=== PATIENT | female | born 1925 | race Caucasian/White ===

== ENCOUNTER 2016-07-02 10:18 | Inpatient (IN) | payer OTHER ==
[~2016-07-02] VITALS: Ht 157.5 cm; Wt 61.8 kg
[~2016-07-02 10:18] MED LIST: CARV25TA77 PO; CHOL200016 PO; CLOP75 PO; DILT180C47 PO; DSS100 PO; ENAL20 PO; GABA-529 PO; HYDR-3965 PO; HYDR25TA PO; ISOS30TA6 PO; LEVO75TA12 PO; MAGOX PO; NITR.4 SL; OMEP20 PO; PRAV20TA4 PO; RANI150T7 PO; RANO500T3 PO
[2016-07-02] MEDS ORDERED: COUGH SYRUP PO (10:37)
[2016-07-02 11:21] LABS: GLUCOSE,POINT OF CARE 155 MG/DL (70-110)
[2016-07-02 12:47] LABS: EOSINOPHILS % (AUTO) 0.3 % (1.0-6.0); HEMATOCRIT 29.1 % (36-46); HEMOGLOBIN 9.6 g/dL (12.0-16.0); LYMPHOCYTES % (AUTO) 10.2 % (22.0-44.0); MEAN CORPUSCULAR HEMOGLOBIN 30.1 pg (26.0-34.0); MEAN CORPUSCULAR HGB CONC 33.1 G/dL (31.0-37.0); MEAN CORPUSCULAR VOLUME 91 fL (80-100); MONOCYTES # (AUTO) 0.5 K/uL (0.1-1.0); MONOCYTES % (AUTO) 5.6 % (2.0-9.0); NEUTROPHILS # (AUTO) 7.9 K/uL (1.8-7.7); NEUTROPHILS % (AUTO) 83.9 % (40.0-70.0); PLATELET COUNT (AUTO) 198 K/uL (150-450); RED CELL DISTRIBUTION WIDTH 13.4 % (11.5-14.5); WHITE BLOOD COUNT (AUTO) 9.4 K/uL (4.5-11.0)
[2016-07-02 12:59] LABS: CALCIUM, TOTAL 9.1 mg/dL (8.8-10.5); CREATININE 1.06 mg/dL (0.60-1.30); POTASSIUM 3.8 mmol/L (3.5-5.1)
[2016-07-02 13:01] LABS: ALBUMIN 3.3 g/dL (3.4-5.0); BILIRUBIN,TOTAL 0.4 mg/dL (0.1-1.0); TOTAL PROTEIN, SERUM 7.9 g/dL (6.4-8.2)
[2016-07-02] MEDS ORDERED: FUROSEMIDE 40 MG/4 ML VIAL IVP ONE (15:00)
[2016-07-02] MEDS ORDERED: ALBUTEROL SULFATE 2.5 MG/0.5 ML NEB SOLUTION NEB ONE (15:00)
[2016-07-02] MEDS ORDERED: 0.9% SODIUM CHLORIDE 5 ML NEB SOLUTION NEB ONE (15:13)
[2016-07-02 16:26] LABS: GLUCOSE,POINT OF CARE 119 MG/DL (70-110)
[2016-07-02 16:29] LABS: APPEARANCE,URINE CLEAR (CLEAR); GLUCOSE, URINE (UA) NEGATIVE (NEGATIVE); KETONES,URINE NEGATIVE (NEGATIVE); LEUKOCYTE ESTERASE ,URINE NEGATIVE (NEGATIVE); OCCULT BLOOD,URINE NEGATIVE (NEGATIVE); PH,URINE 7.5 (5.0-8.0); PROTEIN,URINE NEGATIVE (NEGATIVE)
[2016-07-02 16:30] LABS: ADD UA MICROSCOPIC NO
[2016-07-02 22:30] VITALS: BP 127/64
[2016-07-02] MEDS: HYDROCODONE/ACETAMINOPHEN 5-325 MG TABLET PO SCH (23:43)
[2016-07-02 23:50] VITALS: BP 122/83
[2016-07-03] VITALS (7 sets, daily range): BP systolic 115–154; BP diastolic 74–94
[2016-07-03] MEDS: HYDROCODONE/ACETAMINOPHEN 5-325 MG TABLET PO SCH ×3 (08:33→23:45)
[2016-07-03] MEDS ORDERED: IPRATROPIUM BROMIDE 0.5 MG/2.5 ML NEB SOLUTION NEB PRN (10:30)
[2016-07-03] MEDS ORDERED: ZOLPIDEM TARTRATE 5 MG TABLET PO PRN (10:30)
[2016-07-03] MEDS ORDERED: ACETAMINOPHEN 325 MG TABLET PO PRN (10:30)
[2016-07-03] MEDS ORDERED: ALBUTEROL SULFATE 2.5 MG/0.5 ML NEB SOLUTION NEB PRN (10:30)
[2016-07-03] MEDS ORDERED: HYDROCODONE/ACETAMINOPHEN 5-325 MG TABLET PO PRN ×2 (10:30)
[2016-07-03] MEDS ORDERED: BISACODYL 10 MG RECTAL RECTAL SUPPOSITORY PR PRN (10:30)
[2016-07-03] MEDS ORDERED: FUROSEMIDE 40 MG/4 ML VIAL IVP ONE ×2 (10:30→19:00)
[2016-07-03] MEDS ORDERED: DOCUSATE SODIUM 100 MG CAPSULE PO PRN (10:30)
[2016-07-03] MEDS ORDERED: MAGNESIUM HYDROXIDE SUSPENSION 30 ML UDCUP PO PRN (10:30)
[2016-07-03] MEDS ORDERED: NITROGLYCERIN 0.4 MG SUBLINGUAL TABLET #25 SL PRN (10:30)
[2016-07-03] MEDS: ISOSORBIDE MONONITRATE 30 MG ER TABLET PO SCH (11:43)
[2016-07-03] MEDS: RANITIDINE HCL 150 MG TABLET PO SCH ×2 (11:44→22:01)
[2016-07-03] MEDS: RANOLAZINE 500 MG SR TABLET PO SCH ×2 (11:44→22:06)
[2016-07-03] MEDS: CHOLECALCIFEROL (VIT D3) 2,000 UNITS TABLET PO SCH (11:44)
[2016-07-03] MEDS: LEVOTHYROXINE SODIUM 75 MCG TABLET PO SCH (11:44)
[2016-07-03] MEDS: MAGNESIUM OXIDE 400 MG TABLET PO SCH (11:44)
[2016-07-03] MEDS: CLOPIDOGREL BISULFATE 75 MG TABLET PO SCH (11:44)
[2016-07-03] MEDS: ENALAPRIL MALEATE 20 MG TABLET PO SCH ×2 (11:44→23:34)
[2016-07-03] MEDS: CARVEDILOL 25 MG TABLET PO SCH ×2 (11:44→22:06)
[2016-07-03] MEDS: HEPARIN SODIUM,PORCINE 5,000 UNITS/ML VIAL SQ SCH ×2 (15:46→23:45)
[2016-07-03] MEDS ORDERED: AMIODARONE HCL 150 MG in DEXTROSE 5%-WATER 97 ML IV ONE (15:50)
[2016-07-03] MEDS ORDERED: AMIODARONE HCL 360 MG in DEXTROSE 5%-WATER 242.8 ML IV ONE (16:00)
[2016-07-03] MEDS ORDERED: AMIODARONE HCL 540 MG in DEXTROSE 5%-WATER 239.2 ML IV ONE (22:00)
[2016-07-03] MEDS: DOCUSATE SODIUM 100 MG CAPSULE PO SCH (22:01)
[2016-07-04 03:41] VITALS: BP 145/105
[2016-07-04] MEDS: MORPHINE SULFATE 2 MG/ML SYRINGE IVP PRN (03:49)
[2016-07-04 04:24] VITALS: BP 135/95
[2016-07-04] MEDS: ONDANSETRON HCL 4 MG/2 ML VIAL IVP PRN ×2 (04:48→15:50)
[2016-07-04] MEDS: LEVOTHYROXINE SODIUM 75 MCG TABLET PO SCH (05:58)
[2016-07-04 06:24] LABS: BASOPHILS # (AUTO) 0.02 K/uL (0.00-0.20); BASOPHILS % (AUTO) 0.3 % (0.0-2.0); HEMATOCRIT 32.4 % (36-46); HEMOGLOBIN 10.8 g/dL (12.0-16.0); LYMPHOCYTES # (AUTO) 1.6 K/uL (1.0-4.8); LYMPHOCYTES % (AUTO) 20.5 % (22.0-44.0); MEAN CORPUSCULAR HEMOGLOBIN 30.3 pg (26.0-34.0); MEAN CORPUSCULAR HGB CONC 33.2 G/dL (31.0-37.0); MEAN CORPUSCULAR VOLUME 91 fL (80-100); MONOCYTES # (AUTO) 0.8 K/uL (0.1-1.0); MONOCYTES % (AUTO) 9.6 % (2.0-9.0); NEUTROPHILS # (AUTO) 5.3 K/uL (1.8-7.7); NEUTROPHILS % (AUTO) 68.3 % (40.0-70.0); PLATELET COUNT (AUTO) 210 K/uL (150-450); RED BLOOD CELL COUNT(AUTO) 3.56 MIL/uL (4.00-5.20); RED CELL DISTRIBUTION WIDTH 14.1 % (11.5-14.5); WHITE BLOOD COUNT (AUTO) 7.8 K/uL (4.5-11.0)
[2016-07-04 07:14] LABS: ALBUMIN 3.2 g/dL (3.4-5.0); BILIRUBIN,TOTAL 0.4 mg/dL (0.1-1.0); CALCIUM, TOTAL 9.1 mg/dL (8.8-10.5); CHOL/HDL RATIO 2.4 (3.9-5.7); CREATININE 1.08 mg/dL (0.60-1.30); THYROID STIMULATING HORMONE 3.62 uIU/mL (0.36-3.74); TOTAL PROTEIN, SERUM 7.7 g/dL (6.4-8.2)
[2016-07-04 07:16] VITALS: BP 136/84
[2016-07-04 07:16] LABS: POTASSIUM 2.9 mmol/L (3.5-5.1)
[2016-07-04] MEDS ORDERED: POTASSIUM CHLORIDE 20 MEQ ER TABLET PO PRN ×2 (07:45)
[2016-07-04] MEDS ORDERED: POTASSIUM CHL 10 MEQ/WATER 50 ML IV PRN (07:45)
[2016-07-04] MEDS ORDERED: DIGOXIN 250 MCG/ML 2 ML AMP IVP ONE (07:45)
[2016-07-04] MEDS: HYDROCODONE/ACETAMINOPHEN 5-325 MG TABLET PO SCH ×2 (08:41→15:50)
[2016-07-04] MEDS: RANITIDINE HCL 150 MG TABLET PO SCH ×2 (08:41→20:19)
[2016-07-04] MEDS: CLOPIDOGREL BISULFATE 75 MG TABLET PO SCH (08:41)
[2016-07-04] MEDS: MAGNESIUM OXIDE 400 MG TABLET PO SCH (08:41)
[2016-07-04] MEDS: ISOSORBIDE MONONITRATE 30 MG ER TABLET PO SCH (08:41)
[2016-07-04] MEDS: HEPARIN SODIUM,PORCINE 5,000 UNITS/ML VIAL SQ SCH ×2 (08:41→15:50)
[2016-07-04] MEDS: PANTOPRAZOLE SODIUM 40 MG/VIAL IVP SCH (08:41)
[2016-07-04] MEDS: DOCUSATE SODIUM 100 MG CAPSULE PO SCH ×2 (08:41→20:19)
[2016-07-04] MEDS: PRAVASTATIN SODIUM 40 MG TABLET PO SCH (08:41)
[2016-07-04] MEDS: AMIODARONE HCL 200 MG TABLET PO SCH ×3 (08:41→20:19)
[2016-07-04] MEDS: ENALAPRIL MALEATE 20 MG TABLET PO SCH ×2 (08:42→23:18)
[2016-07-04] MEDS: GABAPENTIN 100 MG CAPSULE PO SCH (08:42)
[2016-07-04] MEDS: APIXABAN 2.5 MG TABLET PO SCH ×2 (08:42→20:20)
[2016-07-04] MEDS: RANOLAZINE 500 MG SR TABLET PO SCH ×2 (08:42→20:19)
[2016-07-04] MEDS: CHOLECALCIFEROL (VIT D3) 2,000 UNITS TABLET PO SCH (08:42)
[2016-07-04] MEDS ORDERED: DILTIAZEM HCL CD 180 MG ER CAPSULE PO SCH (09:00)
[2016-07-04] MEDS ORDERED: HYDROCHLOROTHIAZIDE 25 MG TABLET PO SCH (09:00)
[2016-07-04] MEDS: CARVEDILOL 25 MG TABLET PO SCH ×3 (09:34→20:20)
[2016-07-04 09:53] LABS: VITAMIN B12 LEVEL > 2000 pg/mL (211-911)
[2016-07-04 11:25] VITALS: BP_SYST 158; BP_DIAS 10; BP_DIAS 70
[2016-07-04] MEDS ORDERED: SODIUM CHLORIDE 0.9% 500 ML IV ONE (15:23)
[2016-07-04] MEDS: POTASSIUM CHL 10 MEQ/WATER 50 ML IV PRN ×2 (15:31→17:59)
[2016-07-04 15:47] VITALS: BP 137/76
[2016-07-04] MEDS: AMIODARONE HCL 750 MG in DEXTROSE 5%-WATER 485 ML IV SCH (15:52)
[2016-07-04 19:22] VITALS: BP 137/74
[2016-07-05] VITALS (8 sets, daily range): BP systolic 96–141; BP diastolic 51–85
[2016-07-05] MEDS: HEPARIN SODIUM,PORCINE 5,000 UNITS/ML VIAL SQ SCH ×4 (00:16→23:33)
[2016-07-05] MEDS: HYDROCODONE/ACETAMINOPHEN 5-325 MG TABLET PO SCH ×4 (00:16→23:32)
[2016-07-05] MEDS: LEVOTHYROXINE SODIUM 75 MCG TABLET PO SCH (05:30)
[2016-07-05 06:33] LABS: BASOPHILS % (AUTO) 0.3 % (0.0-2.0); HEMATOCRIT 31.9 % (36-46); HEMOGLOBIN 10.3 g/dL (12.0-16.0); LYMPHOCYTES # (AUTO) 1.8 K/uL (1.0-4.8); LYMPHOCYTES % (AUTO) 16.6 % (22.0-44.0); MEAN CORPUSCULAR HEMOGLOBIN 29.7 pg (26.0-34.0); MEAN CORPUSCULAR HGB CONC 32.2 G/dL (31.0-37.0); MEAN CORPUSCULAR VOLUME 92 fL (80-100); MONOCYTES # (AUTO) 0.9 K/uL (0.1-1.0); MONOCYTES % (AUTO) 8.8 % (2.0-9.0); NEUTROPHILS # (AUTO) 7.9 K/uL (1.8-7.7); NEUTROPHILS % (AUTO) 73.3 % (40.0-70.0); PLATELET COUNT (AUTO) 198 K/uL (150-450); RED BLOOD CELL COUNT(AUTO) 3.47 MIL/uL (4.00-5.20); RED CELL DISTRIBUTION WIDTH 13.8 % (11.5-14.5); WHITE BLOOD COUNT (AUTO) 10.8 K/uL (4.5-11.0)
[2016-07-05 07:31] LABS: ALANINE AMINOTRANSFERASE 17 U/L (12-78); ALBUMIN 2.9 g/dL (3.4-5.0); ANION GAP 6 mmol/L (8-16); ASPARTATE AMINOTRANSFERASE 15 U/L (15-37); BILIRUBIN,TOTAL 0.3 mg/dL (0.1-1.0); CARBON DIOXIDE 29 mmol/L (22-29); CHLORIDE 94 mmol/L (98-107); CREATININE 0.88 mg/dL (0.60-1.30); GLOMERULAR FILTR. RATE CALC > 60 mL/min (>60); POTASSIUM 4.3 mmol/L (3.5-5.1); SODIUM SERUM 129 mmol/L (136-145); TOTAL PROTEIN, SERUM 7.2 g/dL (6.4-8.2); UREA NITROGEN, BLOOD 17 mg/dL (7-18)
[2016-07-05] MEDS: ENALAPRIL MALEATE 20 MG TABLET PO SCH ×2 (09:00→20:17)
[2016-07-05] MEDS ORDERED: MAGNESIUM OXIDE 400 MG TABLET PO PRN (09:30)
[2016-07-05] MEDS ORDERED: MAGNESIUM SULFATE 4 GM/WATER 100 ML IV PRN (09:30)
[2016-07-05] MEDS ORDERED: MAGNESIUM SULFATE 2 GM in DEXTROSE 5%-WATER 50 ML IV PRN (09:30)
[2016-07-05] MEDS: PANTOPRAZOLE SODIUM 40 MG/VIAL IVP SCH (09:33)
[2016-07-05] MEDS: CARVEDILOL 25 MG TABLET PO SCH ×3 (09:39→20:17)
[2016-07-05] MEDS: DOCUSATE SODIUM 100 MG CAPSULE PO SCH ×2 (09:39→20:17)
[2016-07-05] MEDS: MAGNESIUM OXIDE 400 MG TABLET PO SCH (09:40)
[2016-07-05] MEDS: ISOSORBIDE MONONITRATE 30 MG ER TABLET PO SCH (09:40)
[2016-07-05] MEDS: GABAPENTIN 100 MG CAPSULE PO SCH (09:40)
[2016-07-05] MEDS: APIXABAN 2.5 MG TABLET PO SCH ×2 (09:40→20:18)
[2016-07-05] MEDS: PRAVASTATIN SODIUM 40 MG TABLET PO SCH (09:41)
[2016-07-05] MEDS: RANOLAZINE 500 MG SR TABLET PO SCH ×2 (09:41→20:17)
[2016-07-05] MEDS: AMIODARONE HCL 200 MG TABLET PO SCH ×3 (09:41→20:17)
[2016-07-05] MEDS: CLOPIDOGREL BISULFATE 75 MG TABLET PO SCH (09:42)
[2016-07-05] MEDS: CHOLECALCIFEROL (VIT D3) 2,000 UNITS TABLET PO SCH (09:42)
[2016-07-05] MEDS: RANITIDINE HCL 150 MG TABLET PO SCH ×2 (09:42→20:17)
[2016-07-05] MEDS ORDERED: SODIUM CHLORIDE 0.9% 250 ML IV ONE (15:46)
[2016-07-05] MEDS: AMIODARONE HCL 750 MG in DEXTROSE 5%-WATER 485 ML IV SCH (16:49)
[2016-07-06] MEDS: ONDANSETRON HCL 4 MG/2 ML VIAL IVP PRN ×2 (03:59→12:47)
[2016-07-06 04:37] VITALS: BP 122/91
[2016-07-06] MEDS: MORPHINE SULFATE 2 MG/ML SYRINGE IVP PRN (05:28)
[2016-07-06] MEDS: LEVOTHYROXINE SODIUM 75 MCG TABLET PO SCH (05:28)
[2016-07-06 07:04] LABS: BASOPHILS % (AUTO) 0.2 % (0.0-2.0); EOSINOPHILS % (AUTO) 1.4 % (1.0-6.0); HEMATOCRIT 31.1 % (36-46); LYMPHOCYTES # (AUTO) 1.5 K/uL (1.0-4.8); LYMPHOCYTES % (AUTO) 17.9 % (22.0-44.0); MEAN CORPUSCULAR HEMOGLOBIN 29.7 pg (26.0-34.0); MEAN CORPUSCULAR HGB CONC 32.1 G/dL (31.0-37.0); MEAN CORPUSCULAR VOLUME 92 fL (80-100); MONOCYTES # (AUTO) 0.7 K/uL (0.1-1.0); MONOCYTES % (AUTO) 8.1 % (2.0-9.0); NEUTROPHILS # (AUTO) 6.2 K/uL (1.8-7.7); NEUTROPHILS % (AUTO) 72.4 % (40.0-70.0); PLATELET COUNT (AUTO) 182 K/uL (150-450); RED BLOOD CELL COUNT(AUTO) 3.37 MIL/uL (4.00-5.20); RED CELL DISTRIBUTION WIDTH 13.7 % (11.5-14.5); WHITE BLOOD COUNT (AUTO) 8.6 K/uL (4.5-11.0)
[2016-07-06 07:30] LABS: ALANINE AMINOTRANSFERASE 16 U/L (12-78); ALBUMIN 2.9 g/dL (3.4-5.0); ASPARTATE AMINOTRANSFERASE 20 U/L (15-37); BILIRUBIN,TOTAL 0.3 mg/dL (0.1-1.0); CALCIUM, TOTAL 8.9 mg/dL (8.8-10.5); CARBON DIOXIDE 28 mmol/L (22-29); CHLORIDE 90 mmol/L (98-107); CREATININE 0.87 mg/dL (0.60-1.30); GLOMERULAR FILTR. RATE CALC > 60 mL/min (>60); POTASSIUM 4.5 mmol/L (3.5-5.1); TOTAL PROTEIN, SERUM 7.5 g/dL (6.4-8.2); UREA NITROGEN, BLOOD 13 mg/dL (7-18)
[2016-07-06 07:31] LABS: ANION GAP 7 mmol/L (8-16); SODIUM SERUM 125 mmol/L (136-145)
[2016-07-06 07:36] VITALS: BP 132/83
[2016-07-06] MEDS: DOCUSATE SODIUM 100 MG CAPSULE PO SCH ×2 (09:00→20:11)
[2016-07-06] MEDS: HEPARIN SODIUM,PORCINE 5,000 UNITS/ML VIAL SQ SCH ×2 (09:00→15:36)
[2016-07-06] MEDS: HYDROCODONE/ACETAMINOPHEN 5-325 MG TABLET PO SCH ×2 (09:00→15:36)
[2016-07-06] MEDS: PANTOPRAZOLE SODIUM 40 MG/VIAL IVP SCH (09:00)
[2016-07-06] MEDS: APIXABAN 2.5 MG TABLET PO SCH ×2 (09:01→20:11)
[2016-07-06] MEDS: MAGNESIUM OXIDE 400 MG TABLET PO SCH (09:01)
[2016-07-06] MEDS: AMIODARONE HCL 200 MG TABLET PO SCH ×3 (09:01→20:11)
[2016-07-06] MEDS: GABAPENTIN 100 MG CAPSULE PO SCH (09:01)
[2016-07-06] MEDS: ISOSORBIDE MONONITRATE 30 MG ER TABLET PO SCH (09:01)
[2016-07-06] MEDS: CARVEDILOL 25 MG TABLET PO SCH ×3 (09:01→20:11)
[2016-07-06] MEDS: CLOPIDOGREL BISULFATE 75 MG TABLET PO SCH (09:02)
[2016-07-06] MEDS: RANITIDINE HCL 150 MG TABLET PO SCH ×2 (09:02→20:11)
[2016-07-06] MEDS: CHOLECALCIFEROL (VIT D3) 2,000 UNITS TABLET PO SCH (09:02)
[2016-07-06] MEDS: RANOLAZINE 500 MG SR TABLET PO SCH ×2 (09:02→20:11)
[2016-07-06] MEDS: ENALAPRIL MALEATE 20 MG TABLET PO SCH ×2 (09:02→20:11)
[2016-07-06] MEDS: PRAVASTATIN SODIUM 40 MG TABLET PO SCH (09:02)
[2016-07-06 11:37] VITALS: BP 130/83
[2016-07-06] MEDS ORDERED: SODIUM CHLORIDE 0.9% 500 ML IV ONE (13:45)
[2016-07-06] MEDS: FUROSEMIDE 40 MG/4 ML VIAL IVP SCH (14:55)
[2016-07-06 15:39] VITALS: BP 153/81
[2016-07-06 19:24] VITALS: BP 148/96
[2016-07-06] MEDS: OXYGEN THERAPY IH SCH (20:00)
[2016-07-06 23:35] VITALS: BP 118/83
[2016-07-07] MEDS: HYDROCODONE/ACETAMINOPHEN 5-325 MG TABLET PO SCH ×2 (01:55→09:23)
[2016-07-07 04:18] VITALS: BP 138/65
[2016-07-07] MEDS: LEVOTHYROXINE SODIUM 75 MCG TABLET PO SCH (05:17)
[2016-07-07 06:42] LABS: BASOPHILS % (AUTO) 0.5 % (0.0-2.0); EOSINOPHILS % (AUTO) 1.5 % (1.0-6.0); HEMATOCRIT 30.3 % (36-46); HEMOGLOBIN 9.7 g/dL (12.0-16.0); LYMPHOCYTES # (AUTO) 1.6 K/uL (1.0-4.8); LYMPHOCYTES % (AUTO) 23.7 % (22.0-44.0); MEAN CORPUSCULAR HEMOGLOBIN 29.4 pg (26.0-34.0); MEAN CORPUSCULAR HGB CONC 31.9 G/dL (31.0-37.0); MEAN CORPUSCULAR VOLUME 92 fL (80-100); MONOCYTES # (AUTO) 0.6 K/uL (0.1-1.0); MONOCYTES % (AUTO) 8.7 % (2.0-9.0); NEUTROPHILS # (AUTO) 4.6 K/uL (1.8-7.7); NEUTROPHILS % (AUTO) 65.6 % (40.0-70.0); PLATELET COUNT (AUTO) 166 K/uL (150-450); RED BLOOD CELL COUNT(AUTO) 3.28 MIL/uL (4.00-5.20); RED CELL DISTRIBUTION WIDTH 13.7 % (11.5-14.5)
[2016-07-07 07:17] VITALS: BP 137/84
[2016-07-07 08:30] LABS: ANION GAP 6 mmol/L (8-16); CARBON DIOXIDE 29 mmol/L (22-29); CHLORIDE 92 mmol/L (98-107); CREATININE 0.83 mg/dL (0.60-1.30); POTASSIUM 4.1 mmol/L (3.5-5.1); SODIUM SERUM 127 mmol/L (136-145); UREA NITROGEN, BLOOD 14 mg/dL (7-18)
[2016-07-07 08:31] LABS: ALANINE AMINOTRANSFERASE 16 U/L (12-78); ALBUMIN 2.9 g/dL (3.4-5.0); ASPARTATE AMINOTRANSFERASE 15 U/L (15-37); BILIRUBIN,TOTAL 0.3 mg/dL (0.1-1.0); CALCIUM, TOTAL 8.8 mg/dL (8.8-10.5); GLOMERULAR FILTR. RATE CALC > 60 mL/min (>60); TOTAL PROTEIN, SERUM 7.1 g/dL (6.4-8.2)
[2016-07-07] MEDS: OXYGEN THERAPY IH SCH (09:22)
[2016-07-07] MEDS: FUROSEMIDE 40 MG/4 ML VIAL IVP SCH (09:23)
[2016-07-07] MEDS: HEPARIN SODIUM,PORCINE 5,000 UNITS/ML VIAL SQ SCH ×2 (09:23)
[2016-07-07] MEDS: PANTOPRAZOLE SODIUM 40 MG/VIAL IVP SCH (09:26)
[2016-07-07] MEDS: DOCUSATE SODIUM 100 MG CAPSULE PO SCH (09:26)
[2016-07-07] MEDS: ISOSORBIDE MONONITRATE 30 MG ER TABLET PO SCH (09:26)
[2016-07-07] MEDS: PRAVASTATIN SODIUM 40 MG TABLET PO SCH (09:27)
[2016-07-07] MEDS: MAGNESIUM OXIDE 400 MG TABLET PO SCH (09:27)
[2016-07-07] MEDS: APIXABAN 2.5 MG TABLET PO SCH (09:27)
[2016-07-07] MEDS: AMIODARONE HCL 200 MG TABLET PO SCH (09:28)
[2016-07-07] MEDS: GABAPENTIN 100 MG CAPSULE PO SCH (09:28)
[2016-07-07] MEDS: RANOLAZINE 500 MG SR TABLET PO SCH (09:29)
[2016-07-07] MEDS: CLOPIDOGREL BISULFATE 75 MG TABLET PO SCH (09:29)
[2016-07-07] MEDS: CHOLECALCIFEROL (VIT D3) 2,000 UNITS TABLET PO SCH (09:30)
[2016-07-07] MEDS: RANITIDINE HCL 150 MG TABLET PO SCH (09:30)
[2016-07-07] MEDS ORDERED: MINERAL OIL 133 ML ENEMA PR ONE (09:45)
[2016-07-07] MEDS ORDERED: FAMOTIDINE 20 MG TABLET PO SCH (09:45)
[2016-07-07] MEDS ORDERED: AMIO200T44 PO (10:47)
[2016-07-07] MEDS ORDERED: APIX2.5T PO (10:48)
[2016-07-07] MEDS ORDERED: FURO40 PO (10:49)
[2016-07-07] MEDS ORDERED: BISA10S PR (10:51)
[2016-07-07 11:33] VITALS: BP 107/75
[2016-07-07] MEDS: CARVEDILOL 25 MG TABLET PO SCH (12:29)
[2016-07-07] MEDS: ENALAPRIL MALEATE 20 MG TABLET PO SCH (12:29)
== END 2016-07-07 15:40 | disposition home or self-care (01) | DRG 291 ==
LOC: EMS 10:19 → AHU 16:16 → 5S 22:20
PROVIDERS: ADMIT Hospitalist; ATTEND Hospitalist
DX: I11.0 Hypertensive heart disease with heart failure (principal); J96.90 Respiratory failure, unspecified, unspecified whether with hypoxia or hypercapnia; E44.1 Mild protein-calorie malnutrition; E87.1 Hypo-osmolality and hyponatremia; I50.43 Acute on chronic combined systolic (congestive) and diastolic (congestive) heart failure; I48.0 Paroxysmal atrial fibrillation; E78.5 Hyperlipidemia, unspecified; E87.6 Hypokalemia; E03.9 Hypothyroidism, unspecified; K21.9 Gastro-esophageal reflux disease without esophagitis; E11.9 Type 2 diabetes mellitus without complications; I25.10 Atherosclerotic heart disease of native coronary artery without angina pectoris; D64.9 Anemia, unspecified; E83.42 Hypomagnesemia; K59.00 Constipation, unspecified; Z68.24 Body mass index [BMI] 24.0-24.9, adult; Z79.899 Other long term (current) drug therapy; Z79.02 Long term (current) use of antithrombotics/antiplatelets; Z79.891 Long term (current) use of opiate analgesic; Z95.0 Presence of cardiac pacemaker
CPT/HCPCS: 70450; 78472; 82306; 82607; 82746; 82962; 83540; 83550; 83735; 84132; 84443; 92610; 93005; 93306; 94640; 96374; 99285; C9113; J0282; J1160; J1644; J1940; J2270; J2405; J3475; J3480; J7040; J7050; J7060

== ENCOUNTER 2016-07-20 22:59 | Inpatient (IN) | payer OTHER ==
[~2016-07-20] VITALS: Ht 147.3 cm; Wt 66.1 kg
[~2016-07-20 22:59] MED LIST changes: +AMIO200T44 PO; +APIX2.5T PO; +BISA10S PR; -DILT180C47 PO; +FURO40 PO; -HYDR-3965 PO; -HYDR25TA PO
[2016-07-20 23:32] LABS: GLUCOSE COMMENT 1 Doctor Notified; GLUCOSE,POINT OF CARE 167 MG/DL (70-110)
[2016-07-21 00:01] LABS: BASOPHILS % (AUTO) 0.4 % (0.0-2.0); EOSINOPHILS % (AUTO) 0.2 % (1.0-6.0); HEMATOCRIT 28.9 % (36-46); HEMOGLOBIN 9.2 g/dL (12.0-16.0); LYMPHOCYTES # (AUTO) 1.1 K/uL (1.0-4.8); LYMPHOCYTES % (AUTO) 10.1 % (22.0-44.0); MEAN CORPUSCULAR HEMOGLOBIN 29.1 pg (26.0-34.0); MEAN CORPUSCULAR HGB CONC 31.8 G/dL (31.0-37.0); MEAN CORPUSCULAR VOLUME 91 fL (80-100); MONOCYTES % (AUTO) 9.2 % (2.0-9.0); NEUTROPHILS # (AUTO) 9.1 K/uL (1.8-7.7); NEUTROPHILS % (AUTO) 80.1 % (40.0-70.0); PLATELET COUNT (AUTO) 154 K/uL (150-450); RED BLOOD CELL COUNT(AUTO) 3.16 MIL/uL (4.00-5.20); RED CELL DISTRIBUTION WIDTH 14.2 % (11.5-14.5); WHITE BLOOD COUNT (AUTO) 11.3 K/uL (4.5-11.0)
[2016-07-21 00:14] LABS: CALCIUM, TOTAL 8.5 mg/dL (8.8-10.5); CREATININE 1.95 mg/dL (0.60-1.30); POTASSIUM 3.9 mmol/L (3.5-5.1)
[2016-07-21 00:28] LABS: BILIRUBIN,TOTAL 0.3 mg/dL (0.1-1.0); TOTAL PROTEIN, SERUM 7.1 g/dL (6.4-8.2)
[2016-07-21] MEDS ORDERED: SODIUM CHLORIDE 0.9% 1,000 ML IV ONE ×2 (00:45→03:15)
[2016-07-21 00:48] LABS: LACTIC ACID 2.1 mmol/L (0.4-2.0)
[2016-07-21] MEDS ORDERED: MORPHINE SULFATE 4 MG/ML SYRINGE IVP ONE (02:45)
[2016-07-21] MEDS ORDERED: ONDANSETRON HCL 4 MG/2 ML VIAL IVP PRN ×2 (03:00→17:45)
[2016-07-21] MEDS ORDERED: 0.9% SODIUM CHLORIDE 10 ML SYRINGE IVP PRN ×2 (03:00→22:15)
[2016-07-21] MEDS ORDERED: ACETAMINOPHEN 325 MG TABLET PO PRN ×2 (03:00→17:45)
[2016-07-21 04:35] LABS: APPEARANCE,URINE CLOUDY (CLEAR); GLUCOSE, URINE (UA) NEGATIVE (NEGATIVE); KETONES,URINE NEGATIVE (NEGATIVE); LEUKOCYTE ESTERASE ,URINE LARGE (NEGATIVE); OCCULT BLOOD,URINE NEGATIVE (NEGATIVE); PH,URINE 5.5 (5.0-8.0); PROTEIN,URINE POS 1+ (NEGATIVE)
[2016-07-21 04:44] LABS: RBC,URINE 0-2 /HPF (0-2)
[2016-07-21 04:45] LABS: SQUAMOUS EPITHELIAL CELL,UR Few /LPF (None Seen)
[2016-07-21 14:02] LABS: GLUCOSE,POINT OF CARE 147 MG/DL (70-110)
[2016-07-21 16:12] VITALS: BP 106/79
[2016-07-21] MEDS ORDERED: DOCUSATE SODIUM 100 MG CAPSULE PO PRN (17:45)
[2016-07-21] MEDS ORDERED: FUROSEMIDE 40 MG TABLET PO SCH (17:45)
[2016-07-21] MEDS ORDERED: OMEPRAZOLE 20 MG CAPSULE PO SCH (17:45)
[2016-07-21] MEDS ORDERED: NITROGLYCERIN 0.4 MG SUBLINGUAL TABLET #25 SL PRN (17:45)
[2016-07-21] MEDS ORDERED: MAGNESIUM OXIDE 400 MG TABLET PO SCH (17:45)
[2016-07-21] MEDS ORDERED: PRAVASTATIN SODIUM 20 MG TABLET PO SCH (17:45)
[2016-07-21] MEDS: CLOPIDOGREL BISULFATE 75 MG TABLET PO SCH (18:24)
[2016-07-21] MEDS: ISOSORBIDE MONONITRATE 30 MG ER TABLET PO SCH (18:24)
[2016-07-21] MEDS: GABAPENTIN 100 MG CAPSULE PO SCH (18:25)
[2016-07-21 19:33] VITALS: BP 100/61
[2016-07-21] MEDS: ENALAPRIL MALEATE 20 MG TABLET PO SCH (21:00)
[2016-07-21] MEDS: CARVEDILOL 25 MG TABLET PO SCH (21:11)
[2016-07-21] MEDS: APIXABAN 2.5 MG TABLET PO SCH (21:12)
[2016-07-21] MEDS: RANOLAZINE 500 MG SR TABLET PO SCH (21:12)
[2016-07-21] MEDS: RANITIDINE HCL 150 MG TABLET PO SCH (21:13)
[2016-07-21] MEDS: SODIUM CHLORIDE 0.9% 1,000 ML IV SCH (22:58)
[2016-07-21] MEDS: CefTRIAXone 1 GM/DEXTROSE 50 ML IV SCH (23:48)
[2016-07-22] VITALS (9 sets, daily range): BP systolic 108–138; BP diastolic 56–92
[2016-07-22] MEDS: AMIODARONE HCL 200 MG TABLET PO SCH ×4 (00:49→20:02)
[2016-07-22] MEDS: OxyCODONE HCL/ACETAMINOPHEN 5-325 MG TABLET PO PRN ×3 (02:16→20:04)
[2016-07-22 06:13] LABS: GLUCOSE COMMENT 1 Received Meds; GLUCOSE,POINT OF CARE 145 MG/DL (70-110)
[2016-07-22] MEDS: LEVOTHYROXINE SODIUM 75 MCG TABLET PO SCH (06:28)
[2016-07-22 06:56] LABS: BASOPHILS # (AUTO) 0.03 K/uL (0.00-0.20); BASOPHILS % (AUTO) 0.3 % (0.0-2.0); EOSINOPHILS # (AUTO) 0.14 K/uL (0.00-0.70); EOSINOPHILS % (AUTO) 1.61 % (1.0-6.0); HEMATOCRIT 27.6 % (36-46); HEMOGLOBIN 9.1 g/dL (12.0-16.0); LYMPHOCYTES # (AUTO) 1.6 K/uL (1.0-4.8); LYMPHOCYTES % (AUTO) 18.4 % (22.0-44.0); MEAN CORPUSCULAR VOLUME 91 fL (80-100); MONOCYTES # (AUTO) 0.8 K/uL (0.1-1.0); MONOCYTES % (AUTO) 9.1 % (2.0-9.0); NEUTROPHILS % (AUTO) 70.6 % (40.0-70.0); PLATELET COUNT (AUTO) 146 K/uL (150-450); RED BLOOD CELL COUNT(AUTO) 3.04 MIL/uL (4.00-5.20); RED CELL DISTRIBUTION WIDTH 15.2 % (11.5-14.5); WHITE BLOOD COUNT (AUTO) 8.5 K/uL (4.5-11.0)
[2016-07-22 07:01] LABS: CALCIUM, TOTAL 8.4 mg/dL (8.8-10.5); CREATININE 1.38 mg/dL (0.60-1.30); POTASSIUM 3.7 mmol/L (3.5-5.1)
[2016-07-22] MEDS: MAGNESIUM OXIDE 400 MG TABLET PO SCH (08:13)
[2016-07-22] MEDS: GABAPENTIN 100 MG CAPSULE PO SCH (08:14)
[2016-07-22] MEDS: DOCUSATE SODIUM 100 MG CAPSULE PO SCH ×2 (08:14→21:00)
[2016-07-22] MEDS: RANOLAZINE 500 MG SR TABLET PO SCH ×2 (08:14→21:11)
[2016-07-22] MEDS: CLOPIDOGREL BISULFATE 75 MG TABLET PO SCH (08:14)
[2016-07-22] MEDS: APIXABAN 2.5 MG TABLET PO SCH ×2 (08:14→20:02)
[2016-07-22] MEDS: CHOLECALCIFEROL (VIT D3) 2,000 UNITS TABLET PO SCH (08:15)
[2016-07-22] MEDS: RANITIDINE HCL 150 MG TABLET PO SCH ×2 (08:15→20:02)
[2016-07-22] MEDS: PANTOPRAZOLE SODIUM 40 MG/VIAL IVP SCH (08:25)
[2016-07-22] MEDS: ENALAPRIL MALEATE 20 MG TABLET PO SCH (09:00)
[2016-07-22] MEDS ORDERED: PANTOPRAZOLE SODIUM 40 MG DR TABLET PO SCH (09:00)
[2016-07-22] MEDS: PRAVASTATIN SODIUM 40 MG TABLET PO SCH (11:10)
[2016-07-22] MEDS: ISOSORBIDE MONONITRATE 30 MG ER TABLET PO SCH (11:10)
[2016-07-22] MEDS: CARVEDILOL 25 MG TABLET PO SCH ×3 (11:10→20:01)
[2016-07-22] MEDS: BISACODYL 10 MG RECTAL RECTAL SUPPOSITORY PR SCH (11:11)
[2016-07-22] MEDS: SODIUM CHLORIDE 0.9% 1,000 ML IV SCH (18:59)
[2016-07-22] MEDS: CefTRIAXone 1 GM/DEXTROSE 50 ML IV SCH (22:47)
[2016-07-23 04:50] VITALS: BP 141/88
[2016-07-23] MEDS: LEVOTHYROXINE SODIUM 75 MCG TABLET PO SCH (06:23)
[2016-07-23 07:21] LABS: GLUCOSE COMMENT 1 Received Meds; GLUCOSE,POINT OF CARE 131 MG/DL (70-110)
[2016-07-23 07:38] LABS: CALCIUM, TOTAL 8.7 mg/dL (8.8-10.5); CREATININE 1.1 mg/dL (0.60-1.30); MAGNESIUM 1.9 mg/dL (1.80-2.40); PHOSPHORUS 3.2 mg/dL (2.5-4.9); POTASSIUM 3.9 mmol/L (3.5-5.1)
[2016-07-23 07:59] VITALS: BP 145/92
[2016-07-23] MEDS: APIXABAN 2.5 MG TABLET PO SCH ×2 (08:09→20:17)
[2016-07-23] MEDS: CARVEDILOL 25 MG TABLET PO SCH ×3 (08:10→20:17)
[2016-07-23] MEDS: RANITIDINE HCL 150 MG TABLET PO SCH ×2 (08:10→20:17)
[2016-07-23] MEDS: RANOLAZINE 500 MG SR TABLET PO SCH ×2 (08:10→20:17)
[2016-07-23] MEDS: AMIODARONE HCL 200 MG TABLET PO SCH ×3 (08:10→20:17)
[2016-07-23] MEDS: DOCUSATE SODIUM 100 MG CAPSULE PO SCH ×2 (08:10→20:17)
[2016-07-23] MEDS: PRAVASTATIN SODIUM 40 MG TABLET PO SCH (08:10)
[2016-07-23] MEDS: MAGNESIUM OXIDE 400 MG TABLET PO SCH (08:10)
[2016-07-23] MEDS: OxyCODONE HCL/ACETAMINOPHEN 5-325 MG TABLET PO PRN ×2 (08:11→20:26)
[2016-07-23] MEDS: GABAPENTIN 100 MG CAPSULE PO SCH (08:11)
[2016-07-23] MEDS: ISOSORBIDE MONONITRATE 30 MG ER TABLET PO SCH (08:11)
[2016-07-23] MEDS: CLOPIDOGREL BISULFATE 75 MG TABLET PO SCH (08:11)
[2016-07-23] MEDS: PANTOPRAZOLE SODIUM 40 MG/VIAL IVP SCH (08:12)
[2016-07-23] MEDS: BISACODYL 10 MG RECTAL RECTAL SUPPOSITORY PR SCH (08:16)
[2016-07-23] MEDS: CHOLECALCIFEROL (VIT D3) 2,000 UNITS TABLET PO SCH (09:00)
[2016-07-23 10:29] LABS: BASOPHILS % (AUTO) 0.1 % (0.0-2.0); EOSINOPHILS % (AUTO) 0.8 % (1.0-6.0); HEMATOCRIT 27.8 % (36-46); HEMOGLOBIN 8.9 g/dL (12.0-16.0); LYMPHOCYTES # (AUTO) 0.9 K/uL (1.0-4.8); MEAN CORPUSCULAR HEMOGLOBIN 29.1 pg (26.0-34.0); MEAN CORPUSCULAR HGB CONC 31.9 G/dL (31.0-37.0); MEAN CORPUSCULAR VOLUME 91 fL (80-100); MONOCYTES # (AUTO) 0.6 K/uL (0.1-1.0); MONOCYTES % (AUTO) 7.7 % (2.0-9.0); NEUTROPHILS # (AUTO) 6.4 K/uL (1.8-7.7); NEUTROPHILS % (AUTO) 80.4 % (40.0-70.0); PLATELET COUNT (AUTO) 145 K/uL (150-450); RED BLOOD CELL COUNT(AUTO) 3.04 MIL/uL (4.00-5.20); RED CELL DISTRIBUTION WIDTH 14.5 % (11.5-14.5); WHITE BLOOD COUNT (AUTO) 7.9 K/uL (4.5-11.0)
[2016-07-23 10:35] LABS: CALCIUM, TOTAL 8.4 mg/dL (8.8-10.5); CREATININE 1.12 mg/dL (0.60-1.30); POTASSIUM 3.9 mmol/L (3.5-5.1)
[2016-07-23 11:15] VITALS: BP 128/63
[2016-07-23 11:17] LABS: GLUCOSE,POINT OF CARE 126 MG/DL (70-110)
[2016-07-23] MEDS ORDERED: DEXTROSE 50%-WATER 25 GM/50 ML SYRINGE IVP PRN (13:15)
[2016-07-23] MEDS: ENALAPRIL MALEATE 5 MG TABLET PO SCH (13:22)
[2016-07-23 15:59] VITALS: BP 120/78
[2016-07-23] MEDS: SODIUM CHLORIDE 0.9% 1,000 ML IV SCH (16:00)
[2016-07-23] MEDS: INSULIN ASPART 100 UNITS/ML SQ PRN (17:06)
[2016-07-23 19:32] VITALS: BP 111/77
[2016-07-23 20:31] LABS: GLUCOSE COMMENT 1 Received Meds; GLUCOSE,POINT OF CARE 156 MG/DL (70-110)
[2016-07-23 20:47] LABS: GLUCOSE,POINT OF CARE 129 MG/DL (70-110)
[2016-07-23 23:49] VITALS: BP 116/75
[2016-07-24] MEDS: CefTRIAXone 1 GM/DEXTROSE 50 ML IV SCH ×2 (00:43→23:05)
[2016-07-24] MEDS: OxyCODONE HCL/ACETAMINOPHEN 5-325 MG TABLET PO PRN ×3 (04:01→20:17)
[2016-07-24 04:18] VITALS: BP 119/76
[2016-07-24] MEDS: ONDANSETRON HCL 4 MG/2 ML VIAL IVP PRN ×2 (05:16→16:25)
[2016-07-24] MEDS: INSULIN ASPART 100 UNITS/ML SQ PRN ×3 (05:17→16:26)
[2016-07-24] MEDS: LEVOTHYROXINE SODIUM 75 MCG TABLET PO SCH ×3 (05:17→05:51)
[2016-07-24 05:37] LABS: GLUCOSE COMMENT 1 Received Meds; GLUCOSE,POINT OF CARE 175 MG/DL (70-110)
[2016-07-24 07:29] VITALS: BP 116/85
[2016-07-24] MEDS: PANTOPRAZOLE SODIUM 40 MG/VIAL IVP SCH (07:58)
[2016-07-24] MEDS: CLOPIDOGREL BISULFATE 75 MG TABLET PO SCH (08:00)
[2016-07-24] MEDS: DOCUSATE SODIUM 100 MG CAPSULE PO SCH ×2 (08:00→20:16)
[2016-07-24] MEDS: CARVEDILOL 25 MG TABLET PO SCH ×3 (08:00→20:16)
[2016-07-24] MEDS: AMIODARONE HCL 200 MG TABLET PO SCH ×3 (08:01→20:17)
[2016-07-24] MEDS: RANOLAZINE 500 MG SR TABLET PO SCH ×2 (08:01→20:17)
[2016-07-24] MEDS: ENALAPRIL MALEATE 5 MG TABLET PO SCH (08:01)
[2016-07-24] MEDS: PRAVASTATIN SODIUM 40 MG TABLET PO SCH (08:01)
[2016-07-24] MEDS: MAGNESIUM OXIDE 400 MG TABLET PO SCH (08:01)
[2016-07-24] MEDS: APIXABAN 2.5 MG TABLET PO SCH ×2 (08:01→20:17)
[2016-07-24] MEDS: GABAPENTIN 100 MG CAPSULE PO SCH (08:01)
[2016-07-24] MEDS: RANITIDINE HCL 150 MG TABLET PO SCH ×2 (08:01→20:17)
[2016-07-24] MEDS: BISACODYL 10 MG RECTAL RECTAL SUPPOSITORY PR SCH (08:01)
[2016-07-24] MEDS: CHOLECALCIFEROL (VIT D3) 2,000 UNITS TABLET PO SCH (08:01)
[2016-07-24 11:14] VITALS: BP 122/66
[2016-07-24] MEDS ORDERED: BARIUM SULFATE 0.1% SUSPENSION 450 ML BOTTLE ONE (11:50)
[2016-07-24 12:36] LABS: GLUCOSE,POINT OF CARE 112 MG/DL (70-110)
[2016-07-24 15:50] VITALS: BP 126/78
[2016-07-24] MEDS: ISOSORBIDE MONONITRATE 30 MG ER TABLET PO SCH (16:21)
[2016-07-24 20:07] VITALS: BP 121/77
[2016-07-24 20:27] LABS: GLUCOSE,POINT OF CARE 132 MG/DL (70-110)
[2016-07-24 23:23] VITALS: BP 127/92
[2016-07-25 04:56] VITALS: BP 137/89
[2016-07-25 06:16] LABS: GLUCOSE,POINT OF CARE 137 MG/DL (70-110)
[2016-07-25] MEDS: LEVOTHYROXINE SODIUM 75 MCG TABLET PO SCH (06:16)
[2016-07-25] MEDS: INSULIN ASPART 100 UNITS/ML SQ PRN ×3 (06:17→17:31)
[2016-07-25 06:54] LABS: CALCIUM, TOTAL 8.4 mg/dL (8.8-10.5); CREATININE 1.02 mg/dL (0.60-1.30); MAGNESIUM 1.7 mg/dL (1.80-2.40); PHOSPHORUS 3.4 mg/dL (2.5-4.9); POTASSIUM 4.4 mmol/L (3.5-5.1)
[2016-07-25 07:27] LABS: GLUCOSE,POINT OF CARE 133 MG/DL (70-110)
[2016-07-25 07:51] VITALS: BP 131/86
[2016-07-25] MEDS ORDERED: MAGNESIUM SULFATE 1 GM in DEXTROSE 5%-WATER 50 ML IV ONE (08:00)
[2016-07-25] MEDS: RANITIDINE HCL 150 MG TABLET PO SCH ×2 (08:25→20:31)
[2016-07-25] MEDS: GABAPENTIN 100 MG CAPSULE PO SCH (08:25)
[2016-07-25] MEDS: APIXABAN 2.5 MG TABLET PO SCH ×2 (08:25→20:31)
[2016-07-25] MEDS: CLOPIDOGREL BISULFATE 75 MG TABLET PO SCH (08:26)
[2016-07-25] MEDS: ISOSORBIDE MONONITRATE 30 MG ER TABLET PO SCH (08:26)
[2016-07-25] MEDS: MAGNESIUM OXIDE 400 MG TABLET PO SCH (08:26)
[2016-07-25] MEDS: AMIODARONE HCL 200 MG TABLET PO SCH ×3 (08:26→20:31)
[2016-07-25] MEDS: DOCUSATE SODIUM 100 MG CAPSULE PO SCH ×2 (08:26→20:31)
[2016-07-25] MEDS: PANTOPRAZOLE SODIUM 40 MG/VIAL IVP SCH (08:26)
[2016-07-25] MEDS: BISACODYL 10 MG RECTAL RECTAL SUPPOSITORY PR SCH (08:26)
[2016-07-25] MEDS: ENALAPRIL MALEATE 5 MG TABLET PO SCH (08:26)
[2016-07-25] MEDS: PRAVASTATIN SODIUM 40 MG TABLET PO SCH (08:26)
[2016-07-25] MEDS: CHOLECALCIFEROL (VIT D3) 2,000 UNITS TABLET PO SCH (08:26)
[2016-07-25] MEDS: RANOLAZINE 500 MG SR TABLET PO SCH ×2 (08:26→20:31)
[2016-07-25] MEDS: CARVEDILOL 25 MG TABLET PO SCH ×3 (08:26→20:32)
[2016-07-25 11:30] VITALS: BP 123/74
[2016-07-25 12:19] LABS: CALCIUM, TOTAL 8.3 mg/dL (8.8-10.5); CREATININE 1.02 mg/dL (0.60-1.30); POTASSIUM 4.2 mmol/L (3.5-5.1)
[2016-07-25 12:24] LABS: ALBUMIN 2.6 g/dL (3.4-5.0); BILIRUBIN,TOTAL 0.3 mg/dL (0.1-1.0); TOTAL PROTEIN, SERUM 6.4 g/dL (6.4-8.2)
[2016-07-25 12:52] LABS: GLUCOSE COMMENT 1 Received Meds; GLUCOSE,POINT OF CARE 137 MG/DL (70-110)
[2016-07-25] MEDS ORDERED: MEBROFENIN TC99M/MCL ISOTOPE 1 EA INJ INJ ONE (13:30)
[2016-07-25 15:43] VITALS: BP 117/82
[2016-07-25 17:42] LABS: GLUCOSE COMMENT 1 Received Meds; GLUCOSE,POINT OF CARE 149 MG/DL (70-110)
[2016-07-25 19:52] VITALS: BP 121/77
[2016-07-25] MEDS: POTASSIUM CHL 20 MEQ/D5-0.45NS 1,000 ML IV SCH (20:31)
[2016-07-25] MEDS: PIPERACILLIN SODIUM/TAZOBACTAM 2.25 GM in DEXTROSE 5%-WATER 50 ML IV SCH (20:31)
[2016-07-25 20:52] LABS: GLUCOSE,POINT OF CARE 127 MG/DL (70-110)
[2016-07-25 23:24] VITALS: BP 111/68
[2016-07-26] MEDS: OxyCODONE HCL/ACETAMINOPHEN 5-325 MG TABLET PO PRN ×2 (00:15→04:58)
[2016-07-26 04:55] VITALS: BP 125/81
[2016-07-26] MEDS: PIPERACILLIN SODIUM/TAZOBACTAM 2.25 GM in DEXTROSE 5%-WATER 50 ML IV SCH ×2 (04:58→13:11)
[2016-07-26] MEDS: LEVOTHYROXINE SODIUM 75 MCG TABLET PO SCH (05:00)
[2016-07-26 05:17] LABS: GLUCOSE,POINT OF CARE 159 MG/DL (70-110)
[2016-07-26 06:59] LABS: CALCIUM, TOTAL 8.2 mg/dL (8.8-10.5); CREATININE 1.1 mg/dL (0.60-1.30); MAGNESIUM 1.8 mg/dL (1.80-2.40); PHOSPHORUS 2.8 mg/dL (2.5-4.9); POTASSIUM 4.6 mmol/L (3.5-5.1)
[2016-07-26 09:00] VITALS: BP 128/67
[2016-07-26] MEDS ORDERED: EPOETIN ALFA 10,000 UNITS/ML VIAL SQ SCH (09:00)
[2016-07-26] MEDS: RANOLAZINE 500 MG SR TABLET PO SCH (09:01)
[2016-07-26] MEDS: CARVEDILOL 25 MG TABLET PO SCH ×2 (09:03→16:15)
[2016-07-26] MEDS: AMIODARONE HCL 200 MG TABLET PO SCH ×2 (09:04→16:15)
[2016-07-26] MEDS: ENALAPRIL MALEATE 5 MG TABLET PO SCH (09:04)
[2016-07-26] MEDS: CLOPIDOGREL BISULFATE 75 MG TABLET PO SCH (09:05)
[2016-07-26] MEDS: RANITIDINE HCL 150 MG TABLET PO SCH (09:06)
[2016-07-26] MEDS: APIXABAN 2.5 MG TABLET PO SCH (09:06)
[2016-07-26] MEDS: MAGNESIUM OXIDE 400 MG TABLET PO SCH (09:09)
[2016-07-26] MEDS: GABAPENTIN 100 MG CAPSULE PO SCH (09:09)
[2016-07-26] MEDS: ISOSORBIDE MONONITRATE 30 MG ER TABLET PO SCH (09:10)
[2016-07-26] MEDS: PRAVASTATIN SODIUM 40 MG TABLET PO SCH (09:10)
[2016-07-26] MEDS: DOCUSATE SODIUM 100 MG CAPSULE PO SCH (09:11)
[2016-07-26] MEDS: CHOLECALCIFEROL (VIT D3) 2,000 UNITS TABLET PO SCH (09:11)
[2016-07-26] MEDS: PANTOPRAZOLE SODIUM 40 MG/VIAL IVP SCH (09:12)
[2016-07-26] MEDS: BISACODYL 10 MG RECTAL RECTAL SUPPOSITORY PR SCH (09:21)
[2016-07-26] MEDS: POTASSIUM CHL 20 MEQ/D5-0.45NS 1,000 ML IV SCH (09:34)
[2016-07-26] MEDS: ONDANSETRON HCL 4 MG/2 ML VIAL IVP PRN (09:34)
[2016-07-26 11:26] LABS: GLUCOSE,POINT OF CARE 154 MG/DL (70-110)
[2016-07-26 11:42] VITALS: BP 109/86
[2016-07-26] MEDS ORDERED: SODIUM CHLORIDE 0.9% 1,000 ML IV SCH (13:59)
[2016-07-26 16:27] VITALS: BP 130/75
[2016-07-26 18:22] LABS: GLUCOSE COMMENT 1 Received Meds; GLUCOSE,POINT OF CARE 161 MG/DL (70-110)
== END 2016-07-26 18:30 | disposition home health service (06) | DRG 682 ==
LOC: EMS 23:02 → 6N 07-21 09:49
PROVIDERS: ADMIT Internal Medicine; ATTEND Internal Medicine
DX: N17.2 Acute kidney failure with medullary necrosis (principal); G93.41 Metabolic encephalopathy; E43 Unspecified severe protein-calorie malnutrition; E87.1 Hypo-osmolality and hyponatremia; N39.0 Urinary tract infection, site not specified; R65.10 Systemic inflammatory response syndrome (SIRS) of non-infectious origin without acute organ dysfunction; R18.8 Other ascites; E78.00 Pure hypercholesterolemia, unspecified; I48.91 Unspecified atrial fibrillation; E86.0 Dehydration; R55 Syncope and collapse; D64.9 Anemia, unspecified; E11.22 Type 2 diabetes mellitus with diabetic chronic kidney disease; I13.10 Hypertensive heart and chronic kidney disease without heart failure, with stage 1 through stage 4 chronic kidney disease, or unspecified chronic kidney disease; E11.21 Type 2 diabetes mellitus with diabetic nephropathy; N18.9 Chronic kidney disease, unspecified; E03.9 Hypothyroidism, unspecified; I25.10 Atherosclerotic heart disease of native coronary artery without angina pectoris; E78.5 Hyperlipidemia, unspecified; E83.42 Hypomagnesemia; M54.9 Dorsalgia, unspecified; K80.20 Calculus of gallbladder without cholecystitis without obstruction; N28.1 Cyst of kidney, acquired; Z79.899 Other long term (current) drug therapy; Z79.02 Long term (current) use of antithrombotics/antiplatelets; Z79.01 Long term (current) use of anticoagulants; Z95.0 Presence of cardiac pacemaker; Z82.49 Family history of ischemic heart disease and other diseases of the circulatory system
CPT/HCPCS: 70450; 74010; 74176; 76770; 78226; 82570; 82948; 82962; 83605; 83735; 84100; 84156; 84300; 84540; 87086; 93005; 96360; 96361; 96374; 97116; 97162; 97530; 99285; A9537; C9113; J0696; J0885; J2270; J2405; J2543; J3475; J3480; J7030; J7060

== ENCOUNTER 2016-07-28 09:21 | Inpatient (IN) | payer OTHER ==
[~2016-07-28] VITALS: Ht 157.5 cm; Wt 64.4 kg
[2016-07-28 10:03] LABS: EOSINOPHILS % (AUTO) 0.9 % (1.0-6.0); HEMATOCRIT 31.5 % (36-46); HEMOGLOBIN 9.9 g/dL (12.0-16.0); LYMPHOCYTES # (AUTO) 0.7 K/uL (1.0-4.8); LYMPHOCYTES % (AUTO) 7.5 % (22.0-44.0); MEAN CORPUSCULAR HEMOGLOBIN 28.6 pg (26.0-34.0); MEAN CORPUSCULAR HGB CONC 31.5 G/dL (31.0-37.0); MEAN CORPUSCULAR VOLUME 91 fL (80-100); MONOCYTES # (AUTO) 0.4 K/uL (0.1-1.0); MONOCYTES % (AUTO) 4.7 % (2.0-9.0); NEUTROPHILS % (AUTO) 86.9 % (40.0-70.0); PLATELET COUNT (AUTO) 168 K/uL (150-450); RED BLOOD CELL COUNT(AUTO) 3.47 MIL/uL (4.00-5.20); RED CELL DISTRIBUTION WIDTH 15.2 % (11.5-14.5); WHITE BLOOD COUNT (AUTO) 9.3 K/uL (4.5-11.0)
[2016-07-28 10:07] LABS: GLUCOSE,POINT OF CARE 179 MG/DL (70-110)
[2016-07-28 10:18] LABS: ANION GAP 11 mmol/L (8-16); CARBON DIOXIDE 26 mmol/L (22-29); CHLORIDE 96 mmol/L (98-107); CREATININE 1.09 mg/dL (0.60-1.30); GLOMERULAR FILTR. RATE CALC 47 mL/min (>60); POTASSIUM 4.4 mmol/L (3.5-5.1); SODIUM SERUM 133 mmol/L (136-145); UREA NITROGEN, BLOOD 15 mg/dL (7-18)
[2016-07-28 10:24] LABS: B-TYPE NATRIURETIC PEPTIDE 868 pg/mL (0-100)
[2016-07-28 10:43] LABS: ALANINE AMINOTRANSFERASE 33 U/L (12-78); ASPARTATE AMINOTRANSFERASE 31 U/L (15-37); BILIRUBIN,TOTAL 0.6 mg/dL (0.1-1.0); CREATINE KINASE MB 1.4 ng/mL (0-5); CREATINE KINASE, TOTAL 102 U/L (26-192); TOTAL PROTEIN, SERUM 7.4 g/dL (6.4-8.2)
[2016-07-28] MEDS ORDERED: FUROSEMIDE 40 MG/4 ML VIAL IVP ONE (11:45)
[2016-07-28] MEDS ORDERED: ONDANSETRON HCL 4 MG/2 ML VIAL IVP PRN (12:30)
[2016-07-28] MEDS ORDERED: ACETAMINOPHEN 325 MG TABLET PO PRN (12:30)
[2016-07-28 18:42] VITALS: BP 147/93
[2016-07-28 20:12] VITALS: BP 129/98
[2016-07-29] VITALS (7 sets, daily range): BP systolic 105–154; BP diastolic 68–99
[2016-07-29] MEDS ORDERED: DOCUSATE SODIUM 100 MG CAPSULE PO PRN
[2016-07-29] MEDS ORDERED: NITROGLYCERIN 0.4 MG SUBLINGUAL TABLET #25 SL PRN
[2016-07-29] MEDS ORDERED: HYDR-309 PO (01:01)
[2016-07-29] MEDS: HYDROCODONE/ACETAMINOPHEN 5-325 MG TABLET PO PRN ×3 (05:29→20:47)
[2016-07-29] MEDS ORDERED: ACETAMINOPHEN 325 MG TABLET PO PRN ×2 (05:30→20:15)
[2016-07-29] MEDS: LEVOTHYROXINE SODIUM 75 MCG TABLET PO SCH (06:21)
[2016-07-29] MEDS: PRAVASTATIN SODIUM 40 MG TABLET PO SCH (08:28)
[2016-07-29] MEDS: ISOSORBIDE MONONITRATE 30 MG ER TABLET PO SCH (08:28)
[2016-07-29] MEDS: RANITIDINE HCL 150 MG TABLET PO SCH ×2 (08:29→20:46)
[2016-07-29] MEDS: ENALAPRIL MALEATE 20 MG TABLET PO SCH ×2 (08:29→20:45)
[2016-07-29] MEDS: RANOLAZINE 500 MG SR TABLET PO SCH ×2 (08:29→20:45)
[2016-07-29] MEDS: AMIODARONE HCL 200 MG TABLET PO SCH ×3 (08:29→20:45)
[2016-07-29] MEDS: CARVEDILOL 25 MG TABLET PO SCH ×2 (08:29→16:33)
[2016-07-29] MEDS: GABAPENTIN 100 MG CAPSULE PO SCH (08:30)
[2016-07-29] MEDS: APIXABAN 2.5 MG TABLET PO SCH ×2 (08:30→20:45)
[2016-07-29] MEDS: CHOLECALCIFEROL (VIT D3) 2,000 UNITS TABLET PO SCH (08:30)
[2016-07-29] MEDS ORDERED: FUROSEMIDE 40 MG TABLET PO SCH (09:00)
[2016-07-29] MEDS: FUROSEMIDE 20 MG/2 ML VIAL IVP SCH ×2 (09:00→20:45)
[2016-07-29] MEDS ORDERED: BISACODYL 10 MG RECTAL RECTAL SUPPOSITORY PR SCH (09:00)
[2016-07-29] MEDS ORDERED: MAGNESIUM HYDROXIDE SUSPENSION 30 ML UDCUP PO PRN (20:15)
[2016-07-29] MEDS ORDERED: ALBUTEROL SULFATE 2.5 MG/0.5 ML NEB SOLUTION NEB PRN (20:15)
[2016-07-29] MEDS ORDERED: BISACODYL 10 MG RECTAL RECTAL SUPPOSITORY PR PRN (20:15)
[2016-07-29] MEDS ORDERED: MORPHINE SULFATE 2 MG/ML SYRINGE IVP PRN (20:15)
[2016-07-29] MEDS ORDERED: IPRATROPIUM BROMIDE 0.5 MG/2.5 ML NEB SOLUTION NEB PRN (20:15)
[2016-07-29] MEDS: DOCUSATE SODIUM 100 MG CAPSULE PO SCH (20:46)
[2016-07-30 06:01] VITALS: BP 132/97
[2016-07-30] MEDS: LEVOTHYROXINE SODIUM 75 MCG TABLET PO SCH (06:27)
[2016-07-30 06:38] LABS: BASOPHILS % (AUTO) 0.3 % (0.0-2.0); EOSINOPHILS % (AUTO) 3.3 % (1.0-6.0); HEMATOCRIT 32.7 % (36-46); HEMOGLOBIN 10.3 g/dL (12.0-16.0); LYMPHOCYTES # (AUTO) 1.3 K/uL (1.0-4.8); LYMPHOCYTES % (AUTO) 16.7 % (22.0-44.0); MEAN CORPUSCULAR HEMOGLOBIN 28.4 pg (26.0-34.0); MEAN CORPUSCULAR HGB CONC 31.4 G/dL (31.0-37.0); MEAN CORPUSCULAR VOLUME 90 fL (80-100); MONOCYTES # (AUTO) 0.7 K/uL (0.1-1.0); MONOCYTES % (AUTO) 8.5 % (2.0-9.0); NEUTROPHILS # (AUTO) 5.6 K/uL (1.8-7.7); NEUTROPHILS % (AUTO) 71.2 % (40.0-70.0); PLATELET COUNT (AUTO) 190 K/uL (150-450); RED BLOOD CELL COUNT(AUTO) 3.61 MIL/uL (4.00-5.20); RED CELL DISTRIBUTION WIDTH 14.7 % (11.5-14.5); WHITE BLOOD COUNT (AUTO) 7.9 K/uL (4.5-11.0)
[2016-07-30 07:04] LABS: ALBUMIN 2.7 g/dL (3.4-5.0); BILIRUBIN,TOTAL 0.5 mg/dL (0.1-1.0); CALCIUM, TOTAL 8.6 mg/dL (8.8-10.5); CREATININE 0.9 mg/dL (0.60-1.30); MAGNESIUM 1.4 mg/dL (1.80-2.40); POTASSIUM 3.1 mmol/L (3.5-5.1); TOTAL PROTEIN, SERUM 6.8 g/dL (6.4-8.2)
[2016-07-30 07:57] LABS: GLUCOSE,POINT OF CARE 121 MG/DL (70-110)
[2016-07-30 08:09] VITALS: BP 139/101
[2016-07-30] MEDS: ONDANSETRON HCL 4 MG/2 ML VIAL IVP PRN ×2 (08:43→18:24)
[2016-07-30] MEDS: FUROSEMIDE 20 MG/2 ML VIAL IVP SCH ×2 (08:44→20:07)
[2016-07-30] MEDS: PANTOPRAZOLE SODIUM 40 MG DR TABLET PO SCH (08:48)
[2016-07-30] MEDS: AMIODARONE HCL 200 MG TABLET PO SCH ×3 (08:48→20:07)
[2016-07-30] MEDS: DOCUSATE SODIUM 100 MG CAPSULE PO SCH ×2 (08:48→20:06)
[2016-07-30] MEDS: ISOSORBIDE MONONITRATE 30 MG ER TABLET PO SCH (08:48)
[2016-07-30] MEDS: PRAVASTATIN SODIUM 40 MG TABLET PO SCH (08:49)
[2016-07-30] MEDS: CHOLECALCIFEROL (VIT D3) 2,000 UNITS TABLET PO SCH (08:49)
[2016-07-30] MEDS: RANITIDINE HCL 150 MG TABLET PO SCH ×2 (08:49→20:06)
[2016-07-30] MEDS: CARVEDILOL 25 MG TABLET PO SCH ×2 (08:49→20:06)
[2016-07-30] MEDS: GABAPENTIN 100 MG CAPSULE PO SCH (08:49)
[2016-07-30] MEDS: ENALAPRIL MALEATE 20 MG TABLET PO SCH ×2 (08:49→20:06)
[2016-07-30] MEDS: RANOLAZINE 500 MG SR TABLET PO SCH ×2 (08:50→20:06)
[2016-07-30] MEDS: APIXABAN 2.5 MG TABLET PO SCH ×2 (08:50→20:06)
[2016-07-30] MEDS: CLOPIDOGREL BISULFATE 75 MG TABLET PO SCH ×2 (09:00→14:22)
[2016-07-30] MEDS ORDERED: POTASSIUM CHLORIDE 20 MEQ ER TABLET PO ONE (09:30)
[2016-07-30] MEDS ORDERED: MAGNESIUM SULFATE 3 GM in DEXTROSE 5%-WATER 100 ML IV ONE (09:30)
[2016-07-30] MEDS: HYDROCODONE/ACETAMINOPHEN 5-325 MG TABLET PO PRN (09:36)
[2016-07-30] MEDS ORDERED: SODIUM CHLORIDE 0.9% 250 ML IV ONE ×2 (10:49→20:04)
[2016-07-30] MEDS: POTASSIUM CHL 10 MEQ/WATER 50 ML IV SCH ×4 (10:53→20:08)
[2016-07-30 11:30] VITALS: BP 133/81
[2016-07-30 15:49] VITALS: BP 128/90
[2016-07-30 19:11] VITALS: BP 135/88
[2016-07-30] MEDS: SUCRALFATE 1 GM/10 ML SUSPENSION UDCUP PO SCH (20:07)
[2016-07-31] VITALS: BP 141/87
[2016-07-31 05:32] VITALS: BP 132/96
[2016-07-31] MEDS: LEVOTHYROXINE SODIUM 75 MCG TABLET PO SCH (06:10)
[2016-07-31] MEDS ORDERED: INSULIN ASPART 100 UNITS/ML SQ PRN (06:15)
[2016-07-31] MEDS ORDERED: DEXTROSE 50%-WATER 25 GM/50 ML SYRINGE IVP PRN (06:15)
[2016-07-31 06:59] LABS: POTASSIUM 4.2 mmol/L (3.5-5.1)
[2016-07-31 07:48] VITALS: BP 146/89
[2016-07-31] MEDS: AMIODARONE HCL 200 MG TABLET PO SCH (08:40)
[2016-07-31] MEDS: SUCRALFATE 1 GM/10 ML SUSPENSION UDCUP PO SCH (08:40)
[2016-07-31] MEDS: PANTOPRAZOLE SODIUM 40 MG DR TABLET PO SCH (08:40)
[2016-07-31] MEDS: DOCUSATE SODIUM 100 MG CAPSULE PO SCH (08:40)
[2016-07-31] MEDS: FUROSEMIDE 20 MG/2 ML VIAL IVP SCH (08:40)
[2016-07-31] MEDS: ISOSORBIDE MONONITRATE 30 MG ER TABLET PO SCH (08:40)
[2016-07-31] MEDS: APIXABAN 2.5 MG TABLET PO SCH (08:40)
[2016-07-31] MEDS: CLOPIDOGREL BISULFATE 75 MG TABLET PO SCH (08:40)
[2016-07-31] MEDS: PRAVASTATIN SODIUM 40 MG TABLET PO SCH (08:40)
[2016-07-31] MEDS: CHOLECALCIFEROL (VIT D3) 2,000 UNITS TABLET PO SCH (08:41)
[2016-07-31] MEDS: RANITIDINE HCL 150 MG TABLET PO SCH (08:41)
[2016-07-31] MEDS: CARVEDILOL 25 MG TABLET PO SCH (08:41)
[2016-07-31] MEDS: RANOLAZINE 500 MG SR TABLET PO SCH (08:41)
[2016-07-31] MEDS: ENALAPRIL MALEATE 20 MG TABLET PO SCH (08:41)
[2016-07-31] MEDS: GABAPENTIN 100 MG CAPSULE PO SCH (08:41)
[2016-07-31 11:15] VITALS: BP 119/79
[2016-07-31] MEDS ORDERED: SUCR1TAB PO (13:08)
[2016-07-31] MEDS ORDERED: KDUR10 PO (13:08)
[2016-07-31] MEDS ORDERED: FUROSEMIDE 20 MG TABLET PO SCH (21:00)
[2016-08-01 17:37] LABS: GLUCOSE,POINT OF CARE 109 MG/DL (70-110)
[2016-08-01 17:42] LABS: GLUCOSE COMMENT 1 Received Meds; GLUCOSE,POINT OF CARE 139 MG/DL (70-110)
[2016-08-02 05:32] LABS: GLUCOSE,POINT OF CARE 121 MG/DL (70-110)
[2016-08-02 15:02] LABS: GLUCOSE,POINT OF CARE 130 MG/DL (70-110)
[2016-08-02 15:02] LABS: GLUCOSE,POINT OF CARE 132 MG/DL (70-110)
== END 2016-07-31 14:12 | disposition home health service (06) | DRG 292 ==
LOC: EMS 09:23 → AHU 16:41 → 5S 23:52
PROVIDERS: ADMIT Hospitalist; ATTEND Hospitalist
DX: I11.0 Hypertensive heart disease with heart failure (principal); E46 Unspecified protein-calorie malnutrition; I50.43 Acute on chronic combined systolic (congestive) and diastolic (congestive) heart failure; E11.9 Type 2 diabetes mellitus without complications; E03.9 Hypothyroidism, unspecified; D64.9 Anemia, unspecified; E78.00 Pure hypercholesterolemia, unspecified; E78.5 Hyperlipidemia, unspecified; G89.4 Chronic pain syndrome; I10 Essential (primary) hypertension; I25.10 Atherosclerotic heart disease of native coronary artery without angina pectoris; R10.13 Epigastric pain; I48.0 Paroxysmal atrial fibrillation; K21.9 Gastro-esophageal reflux disease without esophagitis; Z95.0 Presence of cardiac pacemaker; Z79.01 Long term (current) use of anticoagulants; Z79.84 Long term (current) use of oral hypoglycemic drugs; Z79.899 Other long term (current) drug therapy; Z68.26 Body mass index [BMI] 26.0-26.9, adult; Z79.02 Long term (current) use of antithrombotics/antiplatelets
CPT/HCPCS: 51702; 82962; 83735; 84132; 87081; 93005; 93306; 94660; 96374; 99291; J1940; J2270; J2405; J3475; J3480; J7050; J7060

== ENCOUNTER 2016-08-07 11:25 | Emergency (ER) | payer OTHER ==
[~2016-08-07] VITALS: Ht 147.3 cm; Wt 59.1 kg
[~2016-08-07 11:25] MED LIST changes: -CLOP75 PO; +HYDR-309 PO; +KDUR10 PO; +SUCR1TAB PO
[2016-08-07 11:47] LABS: GLUCOSE,POINT OF CARE 129 MG/DL (70-110)
[2016-08-07 13:32] LABS: APPEARANCE,URINE CLEAR (CLEAR); GLUCOSE, URINE (UA) NEGATIVE (NEGATIVE); KETONES,URINE NEGATIVE (NEGATIVE); LEUKOCYTE ESTERASE ,URINE NEGATIVE (NEGATIVE); OCCULT BLOOD,URINE NEGATIVE (NEGATIVE); PH,URINE 7.5 (5.0-8.0); PROTEIN,URINE TRACE (NEGATIVE)
[2016-08-07 13:39] LABS: ADD UA MICROSCOPIC YES
[2016-08-07 13:42] LABS: RBC,URINE None Seen /HPF (0-2)
[2016-08-07 13:43] LABS: TRANSITIONAL EPI CELLS,URINE Rare /LPF (None Seen); WBC,URINE 0-2 /HPF (0-5)
[2016-08-07 13:53] LABS: BASOPHILS % (AUTO) 0.3 % (0.0-2.0); HEMATOCRIT 30.2 % (36-46); HEMOGLOBIN 9.4 g/dL (12.0-16.0); LYMPHOCYTES # (AUTO) 1.3 K/uL (1.0-4.8); LYMPHOCYTES % (AUTO) 21.1 % (22.0-44.0); MEAN CORPUSCULAR HGB CONC 31.3 G/dL (31.0-37.0); MEAN CORPUSCULAR VOLUME 86 fL (80-100); MONOCYTES # (AUTO) 0.5 K/uL (0.1-1.0); MONOCYTES % (AUTO) 8.5 % (2.0-9.0); NEUTROPHILS # (AUTO) 4.4 K/uL (1.8-7.7); NEUTROPHILS % (AUTO) 69.1 % (40.0-70.0); PLATELET COUNT (AUTO) 143 K/uL (150-450); RED BLOOD CELL COUNT(AUTO) 3.49 MIL/uL (4.00-5.20); RED CELL DISTRIBUTION WIDTH 16.6 % (11.5-14.5); WHITE BLOOD COUNT (AUTO) 6.3 K/uL (4.5-11.0)
[2016-08-07 14:01] LABS: CALCIUM, TOTAL 8.2 mg/dL (8.8-10.5); CREATININE 1.17 mg/dL (0.60-1.30); POTASSIUM 3.8 mmol/L (3.5-5.1)
[2016-08-07 14:04] LABS: INR 1.3 (0.9-1.1); PROTHROMBIN TIME 13.2 SEC (9.4-11.6)
[2016-08-07 14:07] LABS: BILIRUBIN,TOTAL 0.5 mg/dL (0.1-1.0); TOTAL PROTEIN, SERUM 6.8 g/dL (6.4-8.2)
[2016-08-07] MEDS ORDERED: PRAV40 PO (14:37)
[2016-08-07] MEDS ORDERED: FUROSEMIDE 40 MG/4 ML VIAL IVP ONE (14:45)
[2016-08-07 16:35] VITALS: BP 122/84
== END 2016-08-07 17:24 | disposition home or self-care (01) ==
LOC: EMS 11:27
DX: I11.0 Hypertensive heart disease with heart failure (principal); I50.9 Heart failure, unspecified; I25.10 Atherosclerotic heart disease of native coronary artery without angina pectoris; I48.91 Unspecified atrial fibrillation; E11.9 Type 2 diabetes mellitus without complications; E78.00 Pure hypercholesterolemia, unspecified
CPT/HCPCS: 36415; 51702; 71010; 80053; 81001; 82962; 83880; 84484; 85025; 85610; 93005; 96374; 99285; J1940